=== PATIENT | female | born 1990 | race Caucasian/White ===

== ENCOUNTER → 2019-03-31 | Outpatient (CLI) | payer OTHER | LOC: M OUTALCOH 08:14 | PROVIDERS: ATTEND Psychiatry & Neurology Psychiatry | DX: F11.20 Opioid dependence, uncomplicated (principal) ==

== ENCOUNTER 2019-04-28 13:00 | Outpatient (RCR) | payer OTHER | END 2019-04-29 | LOC: M OUTALCOH 13:00 | PROVIDERS: ATTEND Psychiatry & Neurology Psychiatry | DX: F11.20 Opioid dependence, uncomplicated (principal) ==

== ENCOUNTER 2019-05-26 11:00 | Outpatient (RCR) | payer OTHER | END 2019-05-29 | LOC: M OUTALCOH 11:00 | PROVIDERS: ATTEND Psychiatry & Neurology Psychiatry | DX: F11.20 Opioid dependence, uncomplicated (principal) ==

== ENCOUNTER → 2019-06-29 | Outpatient (RCR) | payer OTHER | LOC: M OUTALCOH 05-31 16:00 | PROVIDERS: ATTEND Psychiatry & Neurology Psychiatry | DX: F11.20 Opioid dependence, uncomplicated (principal) ==

== ENCOUNTER 2019-07-24 14:00 | Outpatient (RCR) | payer OTHER | END 2019-07-29 | LOC: M OUTALCOH 14:00 | PROVIDERS: ATTEND Psychiatry & Neurology Psychiatry | DX: F11.20 Opioid dependence, uncomplicated (principal) ==

== ENCOUNTER → 2019-08-29 | Outpatient (RCR) | payer OTHER | LOC: M OUTALCOH 08-03 10:36 | PROVIDERS: ATTEND Psychiatry & Neurology Psychiatry | DX: F11.20 Opioid dependence, uncomplicated (principal) ==

== ENCOUNTER → 2019-09-28 | Outpatient (REF) | payer OTHER, MEDICAID ==
[2019-09-28 16:08] LABS: CHLAMYDIA DNA AMPLIFICATION NEGATIVE (NEGATIVE); GC DNA AMPLIFICATION NEGATIVE (NEGATIVE)
== END ==
LOC: M LAB REF 13:38
PROVIDERS: ATTEND Nurse Practitioner Family
DX: Z11.3 Encounter for screening for infections with a predominantly sexual mode of transmission (principal); Z12.4 Encounter for screening for malignant neoplasm of cervix

== ENCOUNTER → 2019-09-29 | Outpatient (RCR) | payer OTHER | LOC: M OUTALCOH 09-05 13:05 | PROVIDERS: ATTEND Psychiatry & Neurology Psychiatry | DX: F11.20 Opioid dependence, uncomplicated (principal) ==

== ENCOUNTER 2019-10-23 16:00 | Outpatient (RCR) | payer OTHER | END 2019-10-28 | LOC: M OUTALCOH 16:00 | PROVIDERS: ATTEND Psychiatry & Neurology Psychiatry | DX: F11.20 Opioid dependence, uncomplicated (principal) ==

== ENCOUNTER → 2019-11-28 | Outpatient (RCR) | payer OTHER | LOC: M OUTALCOH 10-30 11:28 | PROVIDERS: ATTEND Psychiatry & Neurology Addiction Medicine | DX: F11.20 Opioid dependence, uncomplicated (principal) ==

== ENCOUNTER 2019-12-14 13:58 | Outpatient (RCR) | payer OTHER | END 2019-12-28 | LOC: M OUTALCOH 13:58 | PROVIDERS: ATTEND Psychiatry & Neurology Psychiatry | DX: F11.20 Opioid dependence, uncomplicated (principal) ==

== ENCOUNTER 2020-01-25 15:11 | Outpatient (RCR) | payer OTHER | END 2020-01-28 | LOC: M OUTALCOH 15:11 | PROVIDERS: ATTEND Psychiatry & Neurology Addiction Medicine | DX: F11.20 Opioid dependence, uncomplicated (principal) ==

== ENCOUNTER → 2020-02-06 | Outpatient (REF) | payer OTHER, MEDICAID ==
[2020-02-06 12:38] LABS: BASO % 0.5 % (0.0-1.0); EOS # 0.1 10^3/uL (0.0-0.5); EOS % 1.6 % (0.0-3.0); HEMATOCRIT 43.2 % (36.0-47.0); HEMOGLOBIN 14.5 g/dl (12.0-15.5); LYMPH # 3.6 10^3/uL (1.5-5.0); LYMPH % 42.8 % (24.0-44.0); MEAN CORPUSCULAR HEMOGLOBIN 28.5 pg (27.0-33.0); MEAN CORPUSCULAR HGB CONC 33.6 g/dl (32.0-36.5); MEAN CORPUSCULAR VOLUME 84.9 fl (80.0-96.0); MONO # 0.5 10^3/uL (0.0-0.8); MONO % 6.1 % (0.0-5.0); NEUTROPHILS # 4.1 10^3/uL (1.5-8.5); NEUTROPHILS % 48.9 % (36.0-66.0); PLATELET COUNT, AUTOMATED 190 10^3/uL (150-450); RED BLOOD COUNT 5.09 10^6/uL (4.00-5.40); WHITE BLOOD COUNT 8.3 10^3/uL (4.0-10.0)
[2020-02-06 13:18] LABS: ALT/SGPT 37 U/L (12-78); BILIRUBIN,TOTAL 0.4 MG/DL (0.2-1.0); BLOOD UREA NITROGEN 16 MG/DL (7-18); CALCIUM LEVEL 9.7 MG/DL (8.5-10.1); CARBON DIOXIDE LEVEL 26 MEQ/L (21-32); CHLORIDE LEVEL 105 MEQ/L (98-107); CHOLESTEROL LEVEL 202 MG/DL (<200); CHOLESTEROL RISK RATIO 4.297 (<5); CREATININE FOR GFR 0.89 MG/DL (0.55-1.30); FREE T4 1.15 NG/DL (0.76-1.46); GLOMERULAR FILTRATION RATE > 60.0 (>60); GLUCOSE, FASTING 87 MG/DL (70-100); HDL CHOLESTEROL 47 MG/DL (>40); LDL CHOLESTEROL 125 MG/DL (<100); NON-HDL-C 155 MG/DL; POTASSIUM SERUM 3.8 MEQ/L (3.5-5.1); SODIUM LEVEL 136 MEQ/L (136-145); TOTAL 25(OH) VITAMIN D 35.4 NG/ML (30.0-100.0); TOTAL PROTEIN 7.7 GM/DL (6.4-8.2); TRIGLYCERIDES LEVEL 151 MG/DL (<150)
[2020-02-06 13:34] LABS: HEMOGLOBIN A1c 5.4 %
== END ==
LOC: M LAB REF 12:04
PROVIDERS: ATTEND Nurse Practitioner Family
DX: R63.5 Abnormal weight gain (principal); Z13.9 Encounter for screening, unspecified; L70.0 Acne vulgaris; G89.29 Other chronic pain

== ENCOUNTER 2020-02-22 14:30 | Outpatient (RCR) | payer OTHER | END 2020-02-27 | LOC: M OUTALCOH 14:30 | PROVIDERS: ATTEND Psychiatry & Neurology Addiction Medicine | DX: F11.20 Opioid dependence, uncomplicated (principal) ==

== ENCOUNTER 2020-03-26 14:00 | Outpatient (RCR) | payer OTHER | END 2020-03-29 | LOC: M OUTALCOH 14:00 | PROVIDERS: ATTEND Psychiatry & Neurology Addiction Medicine | DX: F11.20 Opioid dependence, uncomplicated (principal) ==

== ENCOUNTER 2020-04-18 14:15 | Outpatient (RCR) | payer OTHER | END 2020-04-29 | LOC: M OUTALCOH 14:15 | PROVIDERS: ATTEND Psychiatry & Neurology Psychiatry | DX: F11.20 Opioid dependence, uncomplicated (principal) ==

== ENCOUNTER → 2020-05-29 | Outpatient (RCR) | payer OTHER | LOC: M OUTALCOH 05-16 14:43 | PROVIDERS: ATTEND Psychiatry & Neurology Psychiatry | DX: F11.20 Opioid dependence, uncomplicated (principal) ==

== ENCOUNTER 2020-07-11 14:00 | Outpatient (RCR) | payer OTHER | END 2020-07-29 | LOC: M OUTALCOH 14:00 | PROVIDERS: ATTEND Psychiatry & Neurology Addiction Medicine | DX: F11.20 Opioid dependence, uncomplicated (principal) ==

== ENCOUNTER → 2020-08-29 | Outpatient (RCR) | payer OTHER | LOC: M OUTALCOH 08-08 14:15 | PROVIDERS: ATTEND Psychiatry & Neurology Addiction Medicine | DX: F11.20 Opioid dependence, uncomplicated (principal) ==

== ENCOUNTER 2020-09-25 14:35 | Outpatient (RCR) | payer OTHER | END 2020-09-29 | LOC: M OUTALCOH 14:35 | PROVIDERS: ATTEND Psychiatry & Neurology Addiction Medicine | DX: F11.11 Opioid abuse, in remission (principal); F17.200 Nicotine dependence, unspecified, uncomplicated ==

== ENCOUNTER 2020-11-06 14:00 | Outpatient (RCR) | payer OTHER | END 2020-11-27 | LOC: M OUTALCOH 14:00 | PROVIDERS: ATTEND Psychiatry & Neurology Psychiatry | DX: F11.11 Opioid abuse, in remission (principal); F17.200 Nicotine dependence, unspecified, uncomplicated ==

== ENCOUNTER → 2020-11-25 | Outpatient (REF) | payer OTHER ==
[2020-11-25 18:01] LABS: BASO % 0.3 % (0.0-1.0); EOS # 0.1 10^3/uL (0.0-0.5); HEMATOCRIT 42.5 % (36.0-47.0); HEMOGLOBIN 14.2 g/dl (12.0-15.5); LYMPH # 4.3 10^3/uL (1.5-5.0); LYMPH % 39.3 % (24.0-44.0); MEAN CORPUSCULAR HEMOGLOBIN 28.2 pg (27.0-33.0); MEAN CORPUSCULAR HGB CONC 33.4 g/dl (32.0-36.5); MEAN CORPUSCULAR VOLUME 84.3 fl (80.0-96.0); MONO # 0.5 10^3/uL (0.0-0.8); MONO % 4.8 % (2.0-8.0); NEUTROPHILS # 5.9 10^3/uL (1.5-8.5); NEUTROPHILS % 54.2 % (36.0-66.0); PLATELET COUNT, AUTOMATED 171 10^3/uL (150-450); RED BLOOD COUNT 5.04 10^6/uL (4.00-5.40); WHITE BLOOD COUNT 10.9 10^3/uL (4.0-10.0)
[2020-11-25 18:11] LABS: APPEARANCE, URINE CLEAR (CLEAR); BACTERIA, URINE AUTO NEGATIVE (NEGATIVE); BILIRUBIN, URINE AUTO NEGATIVE (NEGATIVE); BLOOD, URINE BLOOD NEGATIVE (NEGATIVE); COLOR, URINE YELLOW (YELLOW); GLUCOSE, URINE (UA) AUTO NEGATIVE (NEGATIVE); KETONE, URINE AUTO NEGATIVE (NEGATIVE); LEUKOCYTE ESTERASE, URINE AUTO NEGATIVE (NEGATIVE); NITRITE, URINE AUTO NEGATIVE (NEGATIVE); PROTEIN, URINE AUTO NEGATIVE (NEGATIVE); RBC, URINE AUTO 0 /HPF (0-3); SPECIFIC GRAVITY URINE AUTO 1.015 (1.002-1.035); SQUAMOUS EPITHELIAL CELL UR AU 0 /HPF (0-6); UROBILINOGEN, URINE AUTO 0.2 mg/dL (0.0-2.0); WBC, URINE AUTO 0 /HPF (0-3)
[2020-11-25 18:20] LABS: HEMOGLOBIN A1c 5.4 %
[2020-11-25 18:32] LABS: GIANT PLATELETS 1+; PLATELET ESTIMATE NORMAL (NORMAL)
[2020-11-25 18:39] LABS: CHOLESTEROL RISK RATIO 4.534 (<5); FREE T4 1.01 NG/DL (0.76-1.46); THYROID STIMULATING HORMONE 1.25 uIU/ML (0.358-3.740)
[2020-11-26 13:51] LABS: TOTAL 25(OH) VITAMIN D 27.6 NG/ML (30.0-100.0)
== END ==
LOC: M LAB REF 16:37
PROVIDERS: ATTEND Nurse Practitioner Family
DX: Z00.00 Encounter for general adult medical examination without abnormal findings (principal); E66.9 Obesity, unspecified; E03.0 Congenital hypothyroidism with diffuse goiter; G89.4 Chronic pain syndrome

== ENCOUNTER 2020-12-25 14:30 | Outpatient (RCR) | payer OTHER | END 2020-12-27 | LOC: M OUTALCOH 14:30 | PROVIDERS: ATTEND Psychiatry & Neurology Psychiatry | DX: F11.11 Opioid abuse, in remission (principal); F17.200 Nicotine dependence, unspecified, uncomplicated ==

== ENCOUNTER 2021-02-05 15:29 | Outpatient (RCR) | payer OTHER | END 2021-02-26 | LOC: M OUTALCOH 15:29 | PROVIDERS: ATTEND Psychiatry & Neurology Psychiatry | DX: F11.11 Opioid abuse, in remission (principal); F17.200 Nicotine dependence, unspecified, uncomplicated ==

== ENCOUNTER 2021-03-25 13:00 | Outpatient (RCR) | payer OTHER | END 2021-03-29 | LOC: M OUTALCOH 13:00 | PROVIDERS: ATTEND Psychiatry & Neurology Psychiatry | DX: F11.11 Opioid abuse, in remission (principal); F17.200 Nicotine dependence, unspecified, uncomplicated ==

== ENCOUNTER 2021-04-28 15:20 | Outpatient (RCR) | payer OTHER | END 2021-04-29 | LOC: M OUTALCOH 15:20 | PROVIDERS: ATTEND Psychiatry & Neurology Psychiatry | DX: F11.11 Opioid abuse, in remission (principal); F17.200 Nicotine dependence, unspecified, uncomplicated ==

== ENCOUNTER 2021-05-13 14:17 | Outpatient (RCR) | payer OTHER | END 2021-05-29 | LOC: M OUTALCOH 14:17 | PROVIDERS: ATTEND Psychiatry & Neurology Psychiatry | DX: F11.11 Opioid abuse, in remission (principal); F17.200 Nicotine dependence, unspecified, uncomplicated ==

== ENCOUNTER → 2021-06-17 | Outpatient (CLI) | payer OTHER ==
[2021-06-18 04:07] LABS: MUMPS VIRUS IgG ANTIBODY <9.0 AU/mL (Immune >10.9); RUBEOLA IgG ANTIBODY >300.0 AU/mL (Immune >16.4)
== END ==
LOC: M LAB 13:55
PROVIDERS: ATTEND Physician Assistant
DX: Z02.1 Encounter for pre-employment examination (principal)

== ENCOUNTER 2021-06-23 13:26 | Outpatient (RCR) | payer OTHER | END 2021-06-29 | LOC: M OUTALCOH 13:26 | PROVIDERS: ATTEND Psychiatry & Neurology Psychiatry | DX: F11.11 Opioid abuse, in remission (principal); F17.200 Nicotine dependence, unspecified, uncomplicated ==

== ENCOUNTER 2021-08-04 14:00 | Outpatient (RCR) | payer OTHER | END 2021-08-29 | LOC: M OUTALCOH 14:00 | PROVIDERS: ATTEND Psychiatry & Neurology Psychiatry | DX: F11.11 Opioid abuse, in remission (principal); F17.200 Nicotine dependence, unspecified, uncomplicated ==

== ENCOUNTER 2021-09-08 15:25 | Outpatient (RCR) | payer OTHER | END 2021-09-29 | LOC: M OUTALCOH 15:25 | PROVIDERS: ATTEND Psychiatry & Neurology Psychiatry | DX: F11.11 Opioid abuse, in remission (principal); F17.200 Nicotine dependence, unspecified, uncomplicated ==

== ENCOUNTER 2021-10-01 14:08 | Outpatient (RCR) | payer OTHER | END 2021-10-27 | LOC: M OUTALCOH 14:08 | PROVIDERS: ATTEND Psychiatry & Neurology Psychiatry | DX: F11.11 Opioid abuse, in remission (principal); F17.200 Nicotine dependence, unspecified, uncomplicated ==

== ENCOUNTER 2021-11-12 13:51 | Outpatient (RCR) | payer OTHER | END 2021-11-27 | LOC: M OUTALCOH 13:51 | PROVIDERS: ATTEND Psychiatry & Neurology Psychiatry | DX: F11.11 Opioid abuse, in remission (principal); F17.200 Nicotine dependence, unspecified, uncomplicated ==

== ENCOUNTER 2021-12-24 14:11 | Outpatient (RCR) | payer OTHER | END 2021-12-27 | LOC: M OUTALCOH 14:11 | PROVIDERS: ATTEND Psychiatry & Neurology Psychiatry | DX: F11.11 Opioid abuse, in remission (principal); F17.200 Nicotine dependence, unspecified, uncomplicated ==

== ENCOUNTER 2022-01-05 14:38 | Outpatient (RCR) | payer OTHER | END 2022-01-27 | LOC: M OUTALCOH 14:38 | PROVIDERS: ATTEND Psychiatry & Neurology Psychiatry | DX: F11.11 Opioid abuse, in remission (principal); F17.200 Nicotine dependence, unspecified, uncomplicated ==

== ENCOUNTER 2022-02-09 13:07 | Outpatient (RCR) | payer OTHER | END 2022-02-26 | LOC: M OUTALCOH 13:07 | PROVIDERS: ATTEND Psychiatry & Neurology Psychiatry | DX: F11.11 Opioid abuse, in remission (principal); F17.200 Nicotine dependence, unspecified, uncomplicated ==

== ENCOUNTER 2022-02-09 15:31 | Outpatient (RCR) | payer OTHER | END 2022-02-26 | LOC: M OUTALCOH 15:31 | PROVIDERS: ATTEND Psychiatry & Neurology Psychiatry | DX: F11.11 Opioid abuse, in remission (principal); F17.200 Nicotine dependence, unspecified, uncomplicated ==

== ENCOUNTER 2022-03-11 14:08 | Outpatient (RCR) | payer OTHER | END 2022-03-29 | LOC: M OUTALCOH 14:08 | PROVIDERS: ATTEND Psychiatry & Neurology Psychiatry | DX: F11.11 Opioid abuse, in remission (principal); F17.200 Nicotine dependence, unspecified, uncomplicated ==

== ENCOUNTER 2022-04-22 14:21 | Outpatient (RCR) | payer OTHER | END 2022-04-29 | LOC: M OUTALCOH 14:21 | PROVIDERS: ATTEND Psychiatry & Neurology Psychiatry | DX: F11.11 Opioid abuse, in remission (principal); F17.200 Nicotine dependence, unspecified, uncomplicated ==

== ENCOUNTER 2022-05-28 15:51 | Outpatient (RCR) | payer OTHER | END 2022-05-29 | LOC: M OUTALCOH 15:51 | PROVIDERS: ATTEND Psychiatry & Neurology Psychiatry | DX: F11.11 Opioid abuse, in remission (principal); F17.200 Nicotine dependence, unspecified, uncomplicated ==

== ENCOUNTER 2022-06-18 14:35 | Outpatient (RCR) | payer OTHER | END 2022-06-29 | LOC: M OUTALCOH 14:35 | PROVIDERS: ATTEND Psychiatry & Neurology Psychiatry | DX: F11.11 Opioid abuse, in remission (principal); F17.200 Nicotine dependence, unspecified, uncomplicated ==

== ENCOUNTER 2022-07-09 11:34 | Outpatient (RCR) | payer OTHER | END 2022-07-29 | LOC: M OUTALCOH 11:34 | PROVIDERS: ATTEND Psychiatry & Neurology Psychiatry | DX: F11.11 Opioid abuse, in remission (principal); F17.200 Nicotine dependence, unspecified, uncomplicated ==

== ENCOUNTER 2022-07-09 12:21 | Outpatient (RCR) | payer OTHER | END 2022-07-29 | LOC: M OUTALCOH 12:21 | PROVIDERS: ATTEND Psychiatry & Neurology Psychiatry | DX: F11.11 Opioid abuse, in remission (principal); F17.200 Nicotine dependence, unspecified, uncomplicated ==

== ENCOUNTER 2022-08-06 13:24 | Outpatient (RCR) | payer OTHER | END 2022-08-29 | LOC: M OUTALCOH 13:24 | PROVIDERS: ATTEND Psychiatry & Neurology Psychiatry | DX: F11.11 Opioid abuse, in remission (principal); F17.200 Nicotine dependence, unspecified, uncomplicated ==

== ENCOUNTER 2022-09-10 11:55 | Outpatient (RCR) | payer OTHER | END 2022-09-29 | LOC: M OUTALCOH 11:55 | PROVIDERS: ATTEND Psychiatry & Neurology Psychiatry | DX: F11.11 Opioid abuse, in remission (principal); F17.200 Nicotine dependence, unspecified, uncomplicated ==

== ENCOUNTER 2022-10-08 12:39 | Outpatient (RCR) | payer OTHER | END 2022-10-27 | LOC: M OUTALCOH 12:39 | PROVIDERS: ATTEND Internal Medicine | DX: F11.11 Opioid abuse, in remission (principal); F17.200 Nicotine dependence, unspecified, uncomplicated ==

== ENCOUNTER 2022-11-05 11:00 | Outpatient (RCR) | payer OTHER | END 2022-11-27 | LOC: M OUTALCOH 11:00 | PROVIDERS: ATTEND Psychiatry & Neurology Psychiatry | DX: F11.11 Opioid abuse, in remission (principal); F17.200 Nicotine dependence, unspecified, uncomplicated ==

== ENCOUNTER 2022-12-03 11:34 | Outpatient (RCR) | payer OTHER | END 2022-12-27 | LOC: M OUTALCOH 11:34 | PROVIDERS: ATTEND Internal Medicine | DX: F11.11 Opioid abuse, in remission (principal); F17.200 Nicotine dependence, unspecified, uncomplicated ==

== ENCOUNTER 2023-01-07 11:56 | Outpatient (RCR) | payer OTHER | END 2023-01-27 | LOC: M OUTALCOH 11:56 | PROVIDERS: ATTEND Internal Medicine | DX: F11.11 Opioid abuse, in remission (principal); F17.200 Nicotine dependence, unspecified, uncomplicated ==

== ENCOUNTER 2023-02-11 14:09 | Outpatient (RCR) | payer OTHER | END 2023-02-26 | LOC: M OUTALCOH 14:09 | PROVIDERS: ATTEND Psychiatry & Neurology Psychiatry | DX: F11.11 Opioid abuse, in remission (principal); F17.200 Nicotine dependence, unspecified, uncomplicated ==